=== PATIENT | male | born 1975 | race Hispanic/Latino ===

== ENCOUNTER → 2018-05-02 | Outpatient (CLI) | payer OTHER ==
--- NOTE | 2018-05-02 15:05 | Diagnostic Imaging Report ---
Exam: Chest ultrasound History: Reportedly prior trauma, now query cellulitis/abscess left chest wall. Comparison: <None.> Technique: Focused ultrasound was performed of the left chest in the area of clinical concern. Findings: No evidence of fluid collection or mass in the area of clinical concern in the left chest wall. Impression: No evidence of fluid collection or mass in the area of clinical concern in the left chest wall. Signed by: Dr. Ro Simmons MD on 05/02/2018 3:02 PM
== END ==
LOC: US 12:18
PROVIDERS: ATTEND Family Medicine
DX: D24.2 Benign neoplasm of left breast (principal); L03.319 Cellulitis of trunk, unspecified
CPT/HCPCS: 76604

== ENCOUNTER 2018-07-15 22:34 | Emergency (ER) | payer OTHER ==
[~2018-07-15] VITALS: Ht 172.7 cm; Wt 88.5 kg
--- OUTSIDE RECORDS SUMMARY | 2018-07-15 22:37 | XMS REPORT ---
[facility] Address Unknown Phone Unavailable Care Team Providers Care Provider Relations Consultant Name Role Phone KITTY HOOD Unavailable Unavailable Problems This patient has no known problems. Allergies, Adverse Reactions, Alerts This patient has no known allergies or adverse reactions. Medications This patient has no known medications. Results Test Description Test Time Test Comments Text Results Atomic Results Result Comments US CHEST (INCL MEDIASTINUM) 2018-05-02 14:33:00 [place] [address] Patient Name: NORMA LANGE MR #: [id number] : 1975 Age/Sex: 43/M Req #: [id number] Adm Physician: Ordered by: KITTY HOOD MD Report #: [id number] Location: Room/Bed: Procedure: [id number] US/US CHEST (INCL MEDIASTINUM) Exam Date: 05/02/18 Exam Time: 1246 REPORT STATUS: Signed Exam: Chest ultrasound History: Reportedly prior trauma, now query cellulitis/abscess left chest wall. Comparison: <None.> Technique: Focused ultrasound was performed of the left chest in the area of clinical concern. Findings: No evidence of fluid collection or mass in the area of clinical concern in the left chest wall. Impression: No evidence of fluid collection or mass in the area of clinical concern in the left chest wall. Signed by: Dr. Jesus Alcantar MD on 05/02/2018 3:02 PM Dictated By: JESUS ALCANTAR MD [id number] Transcribed By: GEOVANNA on 05/02/18 150 COPY TO: KITTY HOOD MD
--- NOTE | 2018-07-16 00:06 | Diagnostic Imaging Report ---
EXAMINATION: CXR 2 VIEW - HOPD INDICATION: ^[id number] ^[id number] COMPARISON: None FINDINGS: PA and lateral views TUBES and LINES: None. LUNGS: Lungs are well inflated. There is no evidence of pneumonia or pulmonary edema. PLEURA: No pleural effusion or pneumothorax. HEART AND MEDIASTINUM: The cardiomediastinal silhouette is unremarkable. BONES AND SOFT TISSUES: No acute osseous lesion. Soft tissues are unremarkable. UPPER ABDOMEN: No free air under the diaphragm. IMPRESSION: No acute thoracic abnormality. Signed by: Dr. Karson Kohli MD on 07/16/2018 12:03 AM
[2018-07-16 03:06] VITALS: BP 137/87
== END 2018-07-16 01:45 | disposition home or self-care (01) ==
LOC: FSED 22:34
DX: R07.89 Other chest pain (principal); I48.91 Unspecified atrial fibrillation; E11.9 Type 2 diabetes mellitus without complications; Z82.49 Family history of ischemic heart disease and other diseases of the circulatory system
CPT/HCPCS: 71046; 80053; 82553; 84484; 85025; 93005; 99283

== ENCOUNTER 2019-03-02 01:31 | Emergency (ER) | payer OTHER ==
[~2019-03-02] VITALS: Ht 172.7 cm; Wt 88.5 kg
--- NOTE | 2019-03-02 02:25 | Diagnostic Imaging Report ---
EXAMINATION: Head CT without contrast. HISTORY:Headache, sinus pain. COMPARISON:None. TECHNIQUE: Multidetector axial images were obtained from the foramen magnum to the vertex without contrast. The images were reconstructed using brain and bone algorithms. Thin section brain images were reformatted into coronal and sagittal planes. Dose modulation, iterative reconstruction, and/or weight based adjustment of the mA/kV was utilized to reduce the radiation dose to as low as reasonably achievable. Intravenous contrast: None IMAGE QUALITY: Acceptable. FINDINGS: Skull/scalp: No lytic or blastic. lesions. No surgical changes. Parenchyma: No abnormal density. No acute hemorrhage, mass or acute major vascular territorial infarct. Arteries: No density suggestive of thrombosis. Dural sinuses: No abnormal density suggestive of thrombosis. Ventricles: No hydrocephalus or displacement. Extra-axial spaces: No abnormal density. Brain volume: Normal for age. Craniocervical junction: No mass, Chiari malformation, or basilar invagination. Sella: No mass. Paranasal/mastoid sinuses: Imaged portions unremarkable. IMPRESSION: No intracranial abnormality. Signed by: Dr. Nancie Pena M.D. on 03/02/2019 2:22 AM
== END 2019-03-02 02:40 | disposition home or self-care (01) ==
LOC: FSED 01:31
DX: J01.00 Acute maxillary sinusitis, unspecified (principal); R06.00 Dyspnea, unspecified
CPT/HCPCS: 70450; 93005; 99283